=== PATIENT | female | born 1995 ===

== ENCOUNTER 2022-11-05 19:20 | Emergency (ER) | payer OTHER, SELFPAY ==
--- NOTE | ~2022-11-05 | XR_ITS ---
EXAMINATION: XR HAND, LEFT CLINICAL INFORMATION: Injury and pain second through fourth digits COMPARISON: None available. TECHNIQUE: PA, lateral, and oblique views of the left hand. FINDINGS: The bones and soft tissues are normal. No fracture. Alignment is anatomic. Joint spaces are maintained. No erosions or soft tissue calcifications. XR/XR hand LT 2V IMPRESSION: Normal left hand.
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
[2022-11-05 19:30] VITALS: BP 112/74; PULSE 89; RESP 18; TEMP 36.6; O2SAT 99; BMI 32.3
[2022-11-05] MEDS: Diphth,Pertus(ACell),Tet Adult 0.5 ML SYRINGE IM (19:37)
[2022-11-05] MEDS: Bacitracin Oint 0.9 GM PACKET 1 APPL TOPICAL (20:01)
--- NOTE | 2022-11-05 20:06 | PC.NURSE ---
Cleaned hand with betadine and saline solution left middle finger possible foreign body.
== END 2022-11-05 21:29 | disposition home or self-care (01) ==
PROVIDERS: Emergency Provider Internal Medicine
DX: S63.619A Unspecified sprain of unspecified finger, initial encounter (principal); S61.233A Puncture wound without foreign body of left middle finger without damage to nail, initial encounter; S60.512A Abrasion of left hand, initial encounter; V28.09XA Other motorcycle driver injured in noncollision transport accident in nontraffic accident, initial encounter; Y93.89 Activity, other specified; Y92.410 Unspecified street and highway as the place of occurrence of the external cause; Y99.9 Unspecified external cause status
CPT/HCPCS: 73120; 90471; 90715; 99282; 99284